=== PATIENT | female | born 1960 | race Caucasian/White ===

== ENCOUNTER 2024-02-21 13:52 | Inpatient (IN) | payer BC ==
[~2024-02-21] VITALS: Ht 162.6 cm; Wt 112.0 kg
[2024-02-21 14:44] LABS: BASOPHILS % (AUTO) 0.3 % (0-1); EOSINOPHILS # (AUTO) 0.1 X10'3 (0-0.9); EOSINOPHILS % (AUTO) 1.9 % (0-6); HEMATOCRIT 39.4 % (35.0-45.0); HEMOGLOBIN 13.5 g/dl (12.0-16.0); LYMPHOCYTES # (AUTO) 0.3 X10'3 (1.1-4.8); LYMPHOCYTES % (AUTO) 6.9 % (21-51); MEAN CORPUSCULAR HEMOGLOBIN 31.9 PG (27.0-31.0); MEAN CORPUSCULAR HGB CONC 34.3 g/dL (33.0-36.5); MEAN CORPUSCULAR VOLUME 93.2 FL (78-98); MEAN PLATELET VOLUME 8.1 FL (7.4-10.4); MONOCYTES # (AUTO) 0.7 X10'3 (0-0.9); MONOCYTES % (AUTO) 13.8 % (2-12); NEUTROPHILS # (AUTO) 3.8 X10'3 (1.8-7.7); NEUTROPHILS % (AUTO) 77.1 % (42-75); PLATELET COUNT 179 X10'3 (140-440); RED BLOOD COUNT 4.23 X10'6 (4.20-5.60); RED CELL DISTRIBUTION WIDTH 16.8 % (11.5-14.5); WHITE BLOOD COUNT 4.9 X10'3 (4.5-11.0)
[2024-02-21 15:16] LABS: ALANINE AMINOTRANSFERASE 142 U/L (12-78); ALBUMIN/GLOBULIN RATIO 0.7 (1.1-1.5); ALKALINE PHOSPHATASE 154 IU/L (46-116); ANION GAP 11 (8-16); ASPARTATE AMINO TRANSFERASE 119 U/L (10-37); BLOOD UREA NITROGEN 18 MG/DL (7-18); BUN/CREATININE RATIO 12.6 (10.0-20.0); CHLORIDE 98 MMOL/L (99-107); CREATININE 1.43 MG/DL (0.40-0.90); LIPASE 61 U/L (16-77); SODIUM 131 MMOL/L (135-145); TOTAL CARBON DIOXIDE 22.4 MMOL/L (24-32); TOTAL PROTEIN 7.3 G/DL (6.4-8.2); eCRCL 35 ML/MIN; eGFR 37 ML/MIN
[2024-02-21 15:18] LABS: BILIRUBIN,URINE NEGATIVE (Neg); CLARITY,URINE SLIGHTLY CLOUDY (Clear); COLOR,URINE YELLOW (Yellow); GLUCOSE, URINE >=1000 mg/dl (Neg); KETONES,URINE NEGATIVE (Neg); LEUKOCYTE ESTERASE ,URINE NEGATIVE (Neg); NITRITES, URINE NEGATIVE (Neg); OCCULT BLOOD,URINE NEGATIVE (Neg); PROTEIN,URINE NEGATIVE (Neg); UROBILINOGEN,URINE 0.2 E.U/dL (0.2-1.0)
[2024-02-21 15:22] LABS: UA COLLECTION TYPE CLN CATCH MIDSTREAM
[2024-02-21 15:24] LABS: BACTERIA,URINE FEW /HPF (Neg); RBC,URINE NONE SEEN /HPF (0-2); SQUAMOUS EPITHELIAL CELL,UR MANY /LPF (FEW); WBC,URINE 0-4 /HPF (0-4)
[2024-02-21 15:29] LABS: GLUCOSE 441 MG/DL (70-104)
[2024-02-21] MEDS ORDERED: morphine 2 MG/ML inj. syringe IV PRN ×3 (16:10→17:50)
[2024-02-21 16:31] LABS: PRO BRAIN NATRIURETIC PEPTIDE 291 PG/ML (0-125)
[2024-02-21] MEDS: aspirin 81mg tab.chew PO STA (16:49)
[2024-02-21] MEDS: insulin regular, human 10 units/0.1 ml syringe IV STA (16:51)
[2024-02-21] MEDS: mag hydrox/Alum hydrox/simeth 30ml oral suspension PO STA (17:26)
[2024-02-21] MEDS ORDERED: acetaminophen 325mg tablet PO PRN (17:50)
[2024-02-21] MEDS ORDERED: potassium Cl 40MEQ/1/2NS 520ml 520 ML IV PRN (17:50)
[2024-02-21] MEDS ORDERED: potassium Cl 20 mEq SR tablet PO PRN ×2 (17:50)
[2024-02-21] MEDS ORDERED: HYDROcodone/acetaminophen 5mg/325mg tablet PO PRN (17:50)
[2024-02-21] MEDS ORDERED: magnesium 2GM in 50ml NS 50 ML IV PRN (17:50)
[2024-02-21] MEDS ORDERED: HYDROcodone/acetaminophen 10/325mg tab PO PRN (17:50)
[2024-02-21] MEDS ORDERED: magnesium 4gm in 100ml NS 100 ML IV PRN (17:50)
[2024-02-21] MEDS ORDERED: magnesium hydroxide 30ml (MOM) UD suspension PO PRN (17:50)
[2024-02-21] MEDS ORDERED: magnesium Cl slow-release 64mg tablet PO PRN (17:50)
[2024-02-21] MEDS: sodium chloride 0.45% 1,000 ML IV SCH (19:46)
[2024-02-21] MEDS: K and/or MAG REPLACEMENT MC SCH (19:57)
[2024-02-21] MEDS: docusate sod 100mg capsule PO SCH (19:58)
[2024-02-21] MEDS ORDERED: glucagon, human recombinant 1mg kit SUBCUT PRN (20:40)
[2024-02-21] MEDS ORDERED: DEXTROSE 15 GM of carb/4 tabs (each vial/BOTTLE has 4 tablets) PO PRN ×2 (20:40)
[2024-02-21] MEDS ORDERED: dextrose 50%-water 50ml dispensing syringe IV PRN ×2 (20:40)
[2024-02-21 21:06] LABS: HEMOGLOBIN A1C 10.1 % (4.5-6.2)
[2024-02-21] MEDS: insulin Lispro (HumaLOG) vial - multi-dose SQ SCH (22:05)
[2024-02-21] MEDS: mag hydrox/Alum hydrox/simeth 30ml oral suspension PO PRN (22:05)
[2024-02-21 23:20] VITALS: BP 137/83; PULSE 97; RESP 16; TEMP 98.3; O2SAT 97
[2024-02-21 23:31] VITALS: RESP 16; O2SAT 97
[2024-02-22 02:00] VITALS: BP 128/67; PULSE 94; RESP 18; TEMP 97.5; O2SAT 98
[2024-02-22 06:00] VITALS: BP 117/47; PULSE 87; RESP 18; TEMP 98.1; O2SAT 97
[2024-02-22 07:05] LABS: BASOPHILS % (AUTO) 0.8 % (0-1); EOSINOPHILS # (AUTO) 0.1 X10'3 (0-0.9); EOSINOPHILS % (AUTO) 2.7 % (0-6); HEMATOCRIT 37.9 % (35.0-45.0); HEMOGLOBIN 12.9 g/dl (12.0-16.0); LYMPHOCYTES # (AUTO) 0.5 X10'3 (1.1-4.8); LYMPHOCYTES % (AUTO) 9.7 % (21-51); MEAN CORPUSCULAR VOLUME 94.2 FL (78-98); MEAN PLATELET VOLUME 7.4 FL (7.4-10.4); MONOCYTES # (AUTO) 0.7 X10'3 (0-0.9); MONOCYTES % (AUTO) 15.6 % (2-12); NEUTROPHILS # (AUTO) 3.3 X10'3 (1.8-7.7); NEUTROPHILS % (AUTO) 71.2 % (42-75); PLATELET COUNT 158 X10'3 (140-440); RED BLOOD COUNT 4.03 X10'6 (4.20-5.60); RED CELL DISTRIBUTION WIDTH 17.1 % (11.5-14.5); WHITE BLOOD COUNT 4.7 X10'3 (4.5-11.0)
[2024-02-22 07:27] LABS: ALANINE AMINOTRANSFERASE 124 U/L (12-78); ALBUMIN 2.9 G/DL (3.4-5.0); ALBUMIN/GLOBULIN RATIO 0.7 (1.1-1.5); ALKALINE PHOSPHATASE 134 IU/L (46-116); ANION GAP 9 (8-16); ASPARTATE AMINO TRANSFERASE 97 U/L (10-37); BILIRUBIN,TOTAL 1.5 MG/DL (0.1-1.0); BLOOD UREA NITROGEN 15 MG/DL (7-18); CALCIUM 8.8 MG/DL (8.5-10.1); CHLORIDE 99 MMOL/L (99-107); CHOL/HDL RATIO 8.8 (0.00-4.99); CHOLESTEROL 336 MG/DL (0-200); CREATININE 1.07 MG/DL (0.40-0.90); GLUCOSE 180 MG/DL (70-104); HDL CHOLESTEROL 38 MG/DL (35-60); LDL CHOLESTEROL 240 MG/DL (50-100); MAGNESIUM 2.1 MG/DL (1.5-2.4); POTASSIUM 3.9 MMOL/L (3.5-5.1); SODIUM 134 MMOL/L (135-145); TOTAL CARBON DIOXIDE 25.6 MMOL/L (24-32); TOTAL PROTEIN 6.8 G/DL (6.4-8.2); TRIGLYCERIDES 217 MG/DL (20-135); eCRCL 46 ML/MIN; eGFR 52 ML/MIN
[2024-02-22] MEDS: pantoprazole 40 MG vial IV SCH (07:39)
[2024-02-22] MEDS: ondansetron/PF 4mg/2ml inj IV PRN (07:39)
[2024-02-22] MEDS: enoxaparin 30mg/0.3ml syringe SUBCUT SCH (07:40)
[2024-02-22 08:00] VITALS: RESP 18; O2SAT 97
[2024-02-22] MEDS ORDERED: RANO500T6 PO (09:59)
[2024-02-22] MEDS ORDERED: AZEL137S4 BOTHNARES (09:59)
[2024-02-22] MEDS ORDERED: ISOS120T13 PO (09:59)
[2024-02-22] MEDS ORDERED: FLUT1BLS12 INH (09:59)
[2024-02-22] MEDS ORDERED: LISI10TA27 PO (09:59)
[2024-02-22] MEDS ORDERED: ATOR80TA PO (09:59)
[2024-02-22] MEDS ORDERED: LEVO137T24 PO (09:59)
[2024-02-22] MEDS ORDERED: TICA90TA PO (09:59)
[2024-02-22] MEDS ORDERED: TRIA1TAB5 PO (09:59)
[2024-02-22] MEDS ORDERED: INSU500I SQ (09:59)
[2024-02-22 11:00] VITALS: BP 126/58; PULSE 89; RESP 17; TEMP 97.7; O2SAT 99
[2024-02-22] MEDS ORDERED: PANT-47 PO (13:38)
[2024-02-22] MEDS ORDERED: ONDA4TAB12 PO (13:38)
[2024-02-22 15:00] VITALS: BP 139/60; PULSE 97; RESP 12; TEMP 97.6; O2SAT 95
[2024-02-22] MEDS: insulin Lispro (HumaLOG) vial - multi-dose SQ ONE (15:05)
[2024-02-22] MEDS ORDERED: albuterol 2.5 MG/3 ML nebule NEB PRN (15:05)
[2024-02-22] MEDS ORDERED: azelastine Nasal Spray bottle NS PRN (15:05)
[2024-02-22] MEDS ORDERED: triamterene/HCTZ 37.5/25mg tablet PO SCH (15:08)
[2024-02-22] MEDS ORDERED: budesonide 0.5mg/2ml UD nebule IH PRN (15:20)
[2024-02-22] MEDS ORDERED: insulin Lispro (HumaLOG) vial - multi-dose SQ SCH (17:00)
[2024-02-22] MEDS ORDERED: ticagrelor 90mg tablet PO SCH (20:00)
[2024-02-22] MEDS ORDERED: INSULIN REGULAR HUMAN SQ SCH (20:00)
[2024-02-22] MEDS ORDERED: ranolazine 500mg SR tablet (Q12H) PO SCH (20:00)
[2024-02-23] MEDS ORDERED: levoTHYROXINE 112mcg tablet PO SCH (07:00)
[2024-02-23] MEDS ORDERED: levoTHYROXINE 25mcg tablet PO SCH (07:00)
[2024-02-23] MEDS ORDERED: non-formulary drug (Atorvastatin Calcium* (Lipitor*) 1 TAB) PO SCH (08:00)
[2024-02-23] MEDS ORDERED: lisinopril 10 MG tablet PO SCH (08:00)
[2024-02-23] MEDS ORDERED: isosorbide mononitrate 30mg tab.SR.24H PO SCH (08:00)
== END 2024-02-22 18:05 | disposition home or self-care (01) | DRG 435 ==
LOC: ER 13:53 → ED HOLD 17:57 → UNDOADMIN 18:37 → ED HOLD 18:37 → PCU 3S 23:20 → UNDODISIN 02-22 18:05
PROVIDERS: ADMIT Internal Medicine; ATTEND Internal Medicine
DX: C22.9 Malignant neoplasm of liver, not specified as primary or secondary (principal); I21.A1 Myocardial infarction type 2; N17.9 Acute kidney failure, unspecified; Z68.41 Body mass index [BMI] 40.0-44.9, adult; E11.65 Type 2 diabetes mellitus with hyperglycemia; K43.9 Ventral hernia without obstruction or gangrene; I25.10 Atherosclerotic heart disease of native coronary artery without angina pectoris; K59.00 Constipation, unspecified; N83.202 Unspecified ovarian cyst, left side; E66.01 Morbid (severe) obesity due to excess calories; K21.9 Gastro-esophageal reflux disease without esophagitis; I10 Essential (primary) hypertension; E78.5 Hyperlipidemia, unspecified; E89.0 Postprocedural hypothyroidism; Z95.5 Presence of coronary angioplasty implant and graft; Z87.891 Personal history of nicotine dependence; Z85.850 Personal history of malignant neoplasm of thyroid; Z85.05 Personal history of malignant neoplasm of liver; Z82.49 Family history of ischemic heart disease and other diseases of the circulatory system; Z79.82 Long term (current) use of aspirin; Z79.4 Long term (current) use of insulin; Z79.02 Long term (current) use of antithrombotics/antiplatelets; I25.2 Old myocardial infarction; Z90.49 Acquired absence of other specified parts of digestive tract; Z88.8 Allergy status to other drugs, medicaments and biological substances; Z92.21 Personal history of antineoplastic chemotherapy; Z92.3 Personal history of irradiation
CPT/HCPCS: 36415; 71045; 74176; 76856; 80053; 80061; 81001; 82948; 83036; 83690; 83735; 83880; 84484; 85025; 87081; 93005; 93306; 93976; 96374; 99285; C9113; G0378; J1650; J1815; J2405; J3490

== ENCOUNTER 2024-04-23 08:44 | Day surgery (SDC) | payer BC ==
[~2024-04-23] VITALS: Ht 162.6 cm; Wt 107.0 kg
[~2024-04-23 08:44] MED LIST: ATOR80TA PO; INSU500I SQ; ISOS120T13 PO; LEVO137T24 PO; LISI10TA27 PO; METO50TA7 PO; ONDA4TAB12 PO; PANT-47 PO; RANO500T6 PO; TICA90TA PO; TRIA1TAB5 PO
[2024-04-23 09:13] VITALS: BP 145/81; PULSE 94; RESP 16
[2024-04-23] MEDS ORDERED: LIDOcaine 2% Viscous 15ml cup ONE (09:20)
[2024-04-23] MEDS ORDERED: fentaNYL/PF 50MCG/1 ML 2ML syringe ONE ×2 (09:21→10:00)
[2024-04-23] MEDS ORDERED: diphenhydrAMINE 50 mg/ml inj ONE (09:21)
[2024-04-23] MEDS ORDERED: MIDAZolam 1 MG/ML 5ML VIAL ONE (09:21)
[2024-04-23 10:44] VITALS: BP 115/63; PULSE 96; RESP 14; O2SAT 98
[2024-04-23 10:54] VITALS: BP 111/60; PULSE 97; RESP 17; O2SAT 95
[2024-04-23 11:04] VITALS: BP 105/57; PULSE 95; RESP 14; O2SAT 95
[2024-04-23 11:14] VITALS: BP 108/68; PULSE 99; RESP 15; O2SAT 94
== END 2024-04-23 11:40 | disposition home or self-care (01) ==
LOC: GI LAB 08:44
PROVIDERS: ATTEND Internal Medicine Gastroenterology
DX: R93.3 Abnormal findings on diagnostic imaging of other parts of digestive tract (principal); R10.13 Epigastric pain; R11.0 Nausea; K25.4 Chronic or unspecified gastric ulcer with hemorrhage; K29.51 Unspecified chronic gastritis with bleeding; D12.5 Benign neoplasm of sigmoid colon
CPT/HCPCS: 43239; 45381; 45385; 99152; 99153; J1200; J2250; J3010; J7030; Z7512; A4620; C1889